=== PATIENT | female | born 1950 | race Caucasian/White ===

== ENCOUNTER → 2016-07-27 | Outpatient (CLI) | payer OTHER ==
[2016-07-27 13:44] LABS: MEAN CORPUSCULAR HGB CONC 32.8 g/dL (31.0-37.0); MEAN PLATELET VOLUME 9.4 FL (6.0-9.5); WHITE BLOOD COUNT 10.07 10^3uL (4.0-11.0)
[2016-07-27 13:46] LABS: ALBUMIN 4.9 g/dL (3.4-5.0); TOTAL PROTEIN 8.1 g/dL (6.4-8.5)
[2016-07-27 14:37] LABS: MEAN CORPUSCULAR HEMOGLOBIN 31.8 PG (26.0-34.0)
--- NOTE | 2016-07-27 16:48 | Diagnostic Imaging Report ---
INDICATION: 66-year-old female with left wrist pain. COMPARISON: None available. TECHNIQUE: Three views of the left wrist. FINDINGS: There is borderline widening of the scapholunate interval with slight dorsal intercalated segmental instability on the lateral radiograph. These findings would suggest scapholunate ligament disruption. No fracture. Moderate degenerative changes at the scaphoid trapezium trapezoid articulation (STT). Radiocarpal joint space is in normal alignment. No proximal migration of the capitate. IMPRESSION: 1. No acute osseous abnormality. 2. Findings suggestive of scapholunate ligament injury with associated dorsal intercalated segmental instability of the lunate. Dictated by: Dictated on workstation # [id number]
== END ==
LOC: CLAB.BLUES 08:30 → EDSTATUS 08-24 14:47
PROVIDERS: ATTEND Family Medicine
DX: M25.532 Pain in left wrist (principal); E11.9 Type 2 diabetes mellitus without complications; E78.00 Pure hypercholesterolemia, unspecified
CPT/HCPCS: 73110; 80053; 82043; 83036; 83721; 84550; 85027; 85652

== ENCOUNTER → 2016-08-22 | Outpatient (REF) ==
[2016-08-22 14:37] LABS: MEAN CORPUSCULAR VOLUME 91 FL (80-100); MEAN PLATELET VOLUME 8.9 FL (6.0-9.5); PLATELET COUNT 295 10^3uL (150-450); WHITE BLOOD COUNT 15.66 10^3uL (4.0-11.0)
[2016-08-22 14:50] LABS: BAND NEUTROPHILS % 1 % (0-6); EOSINOPHILS % 0 % (0-4); LYMPHOCYTES # 1.3 #; MONOCYTES # 0.5 #; MONOCYTES % 3 % (3-11); RBC MORPH NORMAL (NORMAL); SEGMENTED NEUTROPHILS % 88 % (51-67); TOTAL CELLS COUNTED 100
== END ==
LOC: CLAB.BLUES 14:15
PROVIDERS: ATTEND Family Medicine
DX: E11.9 Type 2 diabetes mellitus without complications (principal); E78.00 Pure hypercholesterolemia, unspecified
CPT/HCPCS: 83036; 83721; 85025

== ENCOUNTER → 2016-09-19 | Outpatient (REF) | LOC: CLAB.BLUES 12:49 | PROVIDERS: ATTEND Family Medicine | DX: J02.9 Acute pharyngitis, unspecified (principal) | CPT/HCPCS: 86308 ==

== ENCOUNTER → 2016-10-18 | Outpatient (REF) | LOC: CLAB.BLUES 12:12 | PROVIDERS: ATTEND Family Medicine | DX: E04.1 Nontoxic single thyroid nodule (principal) | CPT/HCPCS: 84439; 84443 ==

== ENCOUNTER → 2016-11-04 | Outpatient (REF) ==
[2016-11-04 13:26] LABS: MEAN CORPUSCULAR HEMOGLOBIN 30.9 PG (26.0-34.0); MEAN CORPUSCULAR HGB CONC 32.8 g/dL (31.0-37.0); MEAN CORPUSCULAR VOLUME 94 FL (80-100); MEAN PLATELET VOLUME 9.7 FL (6.0-9.5); PLATELET COUNT 316 10^3uL (150-450); WHITE BLOOD COUNT 15.73 10^3uL (4.0-11.0)
[2016-11-04 13:40] LABS: BAND NEUTROPHILS % 9 % (0-6); LYMPHOCYTES # 2.5 #; MONOCYTES # 0.5 #; MONOCYTES % 3 % (3-11); SEGMENTED NEUTROPHILS % 69 % (51-67)
[2016-11-04 13:41] LABS: EOSINOPHILS % 3 % (0-4); TOTAL CELLS COUNTED 100
[2016-11-04 14:02] LABS: ERYTHROCYTE SEDIMENTATION RT* 16 mm/hr (0-23); RBC MORPH NORMAL (NORMAL)
== END ==
LOC: CLAB.BLUES 13:15
PROVIDERS: ATTEND Family Medicine
DX: M25.532 Pain in left wrist (principal)
CPT/HCPCS: 84550; 85007; 85027; 85652

== ENCOUNTER → 2016-12-02 | Outpatient (REF) ==
[2016-12-02 14:50] LABS: BASOPHILS % (AUTO) 1 % (0-2); EOSINOPHILS # (AUTO) 0.3 10^3uL; EOSINOPHILS % (AUTO) 3 % (0-4); LYMPHOCYTES # (AUTO) 2.8 X10^3; MEAN CORPUSCULAR HEMOGLOBIN 30.3 PG (26.0-34.0); MEAN CORPUSCULAR HGB CONC 32.9 g/dL (31.0-37.0); MEAN CORPUSCULAR VOLUME 92 FL (80-100); MEAN PLATELET VOLUME 9.6 FL (6.0-9.5); MONOCYTES # (AUTO) 0.5 X10^3; MONOCYTES % (AUTO) 5 % (3-11); NEUTROPHILS # (AUTO) 5.2 X10^3; NEUTROPHILS % (AUTO) 59 % (51-67); PLATELET COUNT 262 10^3uL (150-450); WHITE BLOOD COUNT 8.86 10^3uL (4.0-11.0)
[2016-12-02 14:58] LABS: ALBUMIN 4.4 g/dL (3.4-5.0); CALCULATED IONIZED CALCIUM 4.1 mg/dL (3.8-4.6); TOTAL PROTEIN 7.2 g/dL (6.4-8.5)
== END ==
LOC: CLAB.BLUES 14:23
PROVIDERS: ATTEND Family Medicine
DX: D72.829 Elevated white blood cell count, unspecified (principal); I48.91 Unspecified atrial fibrillation; E11.9 Type 2 diabetes mellitus without complications
CPT/HCPCS: 80053; 80061; 83036; 85025